=== PATIENT | female | born 1980 | race Caucasian/White ===

== ENCOUNTER 2022-03-25 20:13 | Emergency (ER) | payer MEDICAID, OTHER ==
[~2022-03-25] VITALS: Ht 165.1 cm; Wt 68.0 kg
[2022-03-25 20:54] VITALS: BP 114/54
[2022-03-25] MEDS ORDERED: ACETAMINOPHEN 325MG TABLET PO STA (22:46)
[2022-03-26 00:29] LABS: CHLORIDE 106 mEq/L (98-107)
[2022-03-26 00:34] LABS: BASOPHILS % 0.6 % (0.0-2.0); EOSINOPHILS % 2.8 % (0.0-5.0); HEMATOCRIT. 39.9 % (36.0-48.0); HEMOGLOBIN. 13.5 g/dL (12.0-16.0); LYMPHOCYTES % 38.4 % (20.0-50.0); MEAN CORPUSCULAR HEMOGLOBIN 31.1 pg (28.0-32.0); MEAN PLATELET VOLUME 7.6 fl (7.4-10.4); MONOCYTES % 11.7 % (2.0-8.0); NEUTROPHILS % 46.5 % (40.0-76.0); PLATELET 338 x1000/uL (130-400); RED BLOOD CELL COUNT 4.33 mill/uL (4.2-5.4); RED CELL DISTRIBUTION WIDTH 13.7 % (11.6-14.6)
[2022-03-26 00:37] LABS: ETHANOL BLOOD < 10 mg/dL
== END 2022-03-25 22:00 | disposition left against medical advice (07) ==
LOC: ER 20:13
DX: R51.9 Headache, unspecified (principal); Z53.21 Procedure and treatment not carried out due to patient leaving prior to being seen by health care provider
CPT/HCPCS: 36415; 71045; 80053; 80320; 85025; 93005; G0480